=== PATIENT | male | born 1985 | race Caucasian/White ===

== ENCOUNTER 2020-08-12 17:20 | Emergency (ER) | payer OTHER ==
[2020-08-12 17:34] VITALS: BP 128/76; PULSE 98; TEMP 97.8; BMI 35.4
[2020-08-12] MEDS ORDERED: IBUPROFEN 400 MG TABLET (FP) PO ONE ×2 (17:43→18:23)
== END 2020-08-12 19:06 | disposition home or self-care (01) ==
LOC: FER 17:20
DX: S93.401A Sprain of unspecified ligament of right ankle, initial encounter (principal)
CPT/HCPCS: 73610-TC-RT-FY; 99283-25